=== PATIENT | female | born 1965 | race African-American/Black ===

== ENCOUNTER 2021-12-10 09:50 | Emergency (ER) | payer MEDICAID ==
[~2021-12-10] VITALS: Ht 167.6 cm; Wt 75.0 kg
[2021-12-10] MEDS ORDERED: ACETAMINOPHEN 325MG TABLET PO SCH (10:30)
[2021-12-10] MEDS ORDERED: TOPUD PO (11:40)
[2021-12-10 11:47] VITALS: BP 151/77
== END 2021-12-10 12:00 | disposition home or self-care (01) ==
LOC: ER 09:50
DX: R51.9 Headache, unspecified (principal); M25.521 Pain in right elbow; Z88.0 Allergy status to penicillin; V43.62XA Car passenger injured in collision with other type car in traffic accident, initial encounter; Y93.89 Activity, other specified; Y92.488 Other paved roadways as the place of occurrence of the external cause
CPT/HCPCS: 73080; 74176; 99284